=== PATIENT | female | born 2000 | race Caucasian/White ===

== ENCOUNTER 2018-06-07 21:56 | Emergency (ER) | payer OTHER ==
[2018-06-07] MEDS ORDERED: IPRATROPIUM/ALBUTEROL 3 ML DEYVIAL IH ONE (22:36)
--- NOTE | 2018-06-07 23:30 | EDPHY ---
H & P Smoking Status: Never smoked Time Seen by Provider: 06/07/18 22:26 HPI/ROS: CHIEF COMPLAINT: Pain with inspiration HISTORY OF PRESENT ILLNESS: Patient is a 17-year-old female with chief complaint of pain with respiration for the last hour or 2. She states that around 2 hr ago she was dying her here and there strong fumes in the ear and soon thereafter she developed pain with taking deep breaths. Shows knee cough or leg swelling. She has no history of pulmonary embolism. She does use oral control. Additionally she takes Adderall for attention deficit hyperactivity disorder but takes no other prescribed medication or other illicit drugs. She does report having 1 alcoholic beverage this evening. REVIEW OF SYSTEMS: Constitutional: No fever, no chills. Eyes: No discharge. ENT: No sore throat. Cardiovascular: + chest pain, no palpitations. Respiratory: No cough, no shortness of breath. Gastrointestinal: No abdominal pain, no vomiting. Genitourinary: No hematuria. Musculoskeletal: No back pain. Skin: No rashes. Neurological: No headache. (Fer Oshea) Physical Exam: General Appearance: Alert and no distress. Eyes: Pupils equal and round no injection. Respiratory: Chest is nontender, lungs are clear to auscultation. Cardiac: regular rate and rhythm. Gastrointestinal: Abdomen is soft and nontender, no masses, bowel sounds normal. Musculoskeletal: Neck is supple and nontender. Extremities have full range of motion and are nontender. Skin: No rashes or lesions. (Fer Oshea) Constitutional: Initial Vital Signs Temperature (C) 37 C 06/07/18 22:02 Heart Rate 106 H 06/07/18 22:02 Respiratory Rate 16 06/07/18 22:02 Blood Pressure 94/61 L 06/07/18 22:02 O2 Sat (%) 97 06/07/18 22:02 O2 Delivery Mode Room Air Allergies/Adverse Reactions: No Known Allergies Allergy (Unverified 06/07/18 22:02) Home Medications: Medication Instructions Recorded Adderall 10 MG (*) 06/07/18 Albuterol Hfa Anes Only [Proair 2 puffs IH QID #1 mdi 06/07/18 Hfa Icu (*)] Depo-Provera 150 mg/ml (*) 06/07/18 Medical Decision Making - Diagnostics Imaging Results: Imaging Impressions Chest X-Ray 06/07/18 22:36 Impression: 1. No focal pneumonia. 2. No pneumothorax. ED Course/Re-evaluation: 17-year-old female here with pain with respiration after dying her hair and inhaling fumes. D-dimer negative for pulmonary embolism. Chest x-ray negative for pneumothorax or infiltrate or effusion. She is not hypoxic in no respiratory distress. She does feel better after oral Tylenol with codeine with 1 DuoNeb treatment. Will continue her on albuterol for bronchospasm. ( Fer Oshea) PHYSICIAN DOCUMENTATION: The patient was evaluated and managed by the [facility] [employer] Sales Representative. My co- signature indicates that I have reviewed this chart and I agree with the findings and plan of care as documented. I am the secondary supervising physician. (Louann Jones) - Data Points Laboratory Results: 06/07/18 22:11 D-Dimer < 0.27 ug/mLFEU ug/mLFEU (0.00-0.50) Medications Given: Discontinued Medications Acetaminophen/Codeine Phosphate (Tylenol #3) 1 tab PO ONCE ONE Stop: 06/07/18 23:33 Last Admin: 06/07/18 23:38 Dose: 1 tab Albuterol/Ipratropium (Duoneb) 3 ml IH EDNOW ONE Stop: 06/07/18 22:37 Last Admin: 06/07/18 23:38 Dose: 3 ml Departure - Departure Disposition: Home, Routine, Self-Care Clinical Impression: Pneumonitis due to fumes and vapors Condition: Good Instructions: Pneumonitis (ED) Additional Instructions: Do 2 puffs of albuterol every 4 hr for the next 2 days. Return to the ER he have worsening trouble breathing or other worrisome symptoms. Referrals: NONE *PRIMARY CARE P,. [Primary Care Provider] - As per Instructions Prescriptions: Albuterol Hfa Anes Only [Proair Hfa Icu (*)] 2 puffs IH QID #1 mdi
[2018-06-07] MEDS ORDERED: ACETAMINOPHEN/CODEINE 300/30MG TAB PO ONE (23:32)
[2018-06-08 00:02] VITALS: BP 121/84
== END 2018-06-08 00:02 | disposition home or self-care (01) ==
DX: T59.891A Toxic effect of other specified gases, fumes and vapors, accidental (unintentional), initial encounter (principal); J68.0 Bronchitis and pneumonitis due to chemicals, gases, fumes and vapors; F90.9 Attention-deficit hyperactivity disorder, unspecified type; Z79.3 Long term (current) use of hormonal contraceptives